=== PATIENT | male | born 1955 | race African-American/Black ===

== ENCOUNTER 2016-05-20 12:53 | Outpatient (CLI) | payer OTHER ==
[~2016-05-20] VITALS: Ht 182.9 cm; Wt 81.4 kg
[~2016-05-20 12:53] MED LIST: AMLO-147 PO; FER325 PO; POLY17PO6 PO; SPIR50TA PO
[2016-05-20 13:15] VITALS: BP 134/73; PULSE 76; RESP 18; Ht 182.9 cm; Wt 81.4 kg
--- NOTE | 2016-05-20 16:58 | CONS ---
DATE OF ADMISSION: 05/20/2016 DATE OF CONSULTATION: 05/20/2016 TYPE OF CONSULTATION: [facility] subsequent outpatient consultation note. PLACE OF SERVICE: [facility]. IMPRESSION AND PLAN: A very pleasant 61-year-old gentleman well known to me from his prior encounte rs regarding a right-sided hepatocellular carcinoma that we removed in 2016, presenting with an area in his left lobe of the liver (segment 2) that has been known to us since prior to his initial oper ation and was not seen at the time of the operation with intraoperative ultrasound, which is showing signs of an 8 mm growth over a period of a year. Coupled with rise in alpha fetoprotein from 3 to 5. We have concerns that this area is indeed a hepatocellular carcinoma in a separate part of his l iver compared to the origin one. The patient is certainly at risk for developing hepatocellular car cinoma anywhere in his liver. He is otherwise relatively young and fairly healthy and for this reas on, I recommend that we stay on an aggressive course. One of my concerns is the amount of ascites that the patient has now compared to prior to his first operation. Removal of this tumor also involves approximately 30% reduction in the volume of his sadie er. Given the amount of cirrhosis that he has, he may not be able to tolerate this well. A positiv e note in his favor is the platelet count which remains in the 230s range indicating not enough port al hypertension to be worrisome for performance of this operation. Also, because this would be a re operation the potential risk of problems are higher relative to a de wan operation. In the process of thinking about possible options we also need to consider transarterial chemoembolization as perh aps a bridging tool while we sort out the resectability for the patient. This could also be coupled with a left portal vein embolization which hopefully would grow the right side even more and make t his operation safer. This may be combined within the same procedure, or may have to be done in diff erent time frames. Finally, a consideration for liver transplantation should be done at this point and an official form given the health of the patient otherwise and the fact that we do have document ed cancer in the recent past and a concerning lesion currently, which would still fall within the De theresa criteria. I believe that if we can get the patient to a transplant in a timely fashion that radha t would ultimately be the best solution for him. I spent quite a bit of time with the patient and his girlfriend (more than 60 minutes) describing al l of this in detail and answering the patient's questions and family's questions to the best of my a bility. I believe that the patient and his family appeared to understand and agree with the plan. With above assessment, I have recommended the followin. Careful review of patient's medications with attempt at further adjustment of diuretics and othe r medications to see if the patient's ascites can improve. 2. Continue surveillance with labs. 3. Discussion with interventional radiology regarding transarterial chemoembolization plus or minus left portal vein embolization in an attempt to grow the right side of the liver. 4. Official liver transplant evaluation consultation. 5. Multidisciplinary Tumor Board presentation. 6. Possible attempt at resection of left lateral lobe of the liver. If the patient's clinical pict ure indicates healthy enough liver to undergo this procedure. 7. Close outpatient followup. Thank you again for allowing us to participate in the care of this very pleasant gentleman and his w onderful family. I will continue to remain involved in his care closely with you and will be availa ble to answer any questions at [phone]. TOTAL VISIT TIME: More than 60 minutes, of which more than half of was spent in [id number] discus maximino with the patient and family, as well as coordination of care between multiple physicians and pr oviders. HISTORY OF PRESENT ILLNESS: The patient is a very pleasant 61-year-old gentleman well known to me f rom his prior encounters for his hepatocellular carcinoma in the setting of liver cirrhosis. He is status post resection of a lesion in his liver near the inferior vena cava. He did remarkably well after that. He had a known lesion in the left side of the liver that we could not see at the time o f the initial operation and frankly, given the amount of cirrhosis that the patient had, I am not guillen re even today that I would of been able to combine the 2 procedures together safely to be able to re move all known lesions. Regardless, I could not see the lesion with intraoperative ultrasound at th at time and for this reason, we did not operate on the left lobe of the liver. The patient has been followed subsequently and has been doing fairly well with the exception of slight increase in amoun t of ascites as well as rise in his alpha fetoprotein over the last few months from 3 to [address] recent alpha fetoprotein done in March 2016. He also does not have any major symptoms. He has some minor discomfort in the lower aspect of his abdominal wall, but has been eating fairly well an d has regained essentially all the weight that he had lost prior to the first operation. PHYSICAL EXAMINATION: GENERAL: The patient appears to be a very pleasant -[place] gentleman of non- desce nt, appearing stated age, sitting in a chair comfortably and in no acute distress. His BMI is 24.3 (previously 23.06 January 2016). VITAL SIGNS: Temperature is 98.6. Blood pressure 134/73. Pulse 76, respiratory rate 18. Pulse o ximetry 99% on room air. GENERAL: Round and more distended than last year. His incisions are well healed and there is no ob vious evidence of erythema, edema, discharge or hernia with Valsalva maneuvers. The abdomen is othe rwise soft and nontender. There are no peritoneal signs or guarding. There is no evidence of organ omegaly, caput medusae, engorged subcutaneous veins, but there is evidence of ascites. LABORATORY DATA: Dated 04/29/2016 white blood cell count 5.9, hemoglobin 9.9, platelets 219. Elect rolytes are slightly abnormal with sodium 129, potassium 5.5, CO2 is 23. Albumin 3.6. Total biliru bin 0.4. AST 30, ALT 14, alkaline phosphatase 85, alpha fetoprotein 5 and that compares to 3.2 on 04/28/2015. IMAGING: Pertinent findings of the new CT scan were reviewed above. Dictated By: BIPIN SARMIENTO/SAMY Conf#: [id number] DID#: [id number] CC: James Bloom;*End*
== END 2016-05-20 16:47 | disposition home or self-care (01) ==
LOC: HPC 12:53
PROVIDERS: ATTEND Transplant Surgery
DX: C22.0 Liver cell carcinoma (principal); K74.60 Unspecified cirrhosis of liver; R18.8 Other ascites
CPT/HCPCS: G0463